=== PATIENT | female | born 1985 | race American Indian/Alaskan Native ===

== ENCOUNTER 2021-02-18 12:38 | Inpatient (IN) | payer OTHER ==
[~2021-02-18] VITALS: Ht 160 cm; Wt 70.3 kg
[2021-02-18] MEDS ORDERED: PRENATAL TABLE1 EAC1 PO (17:02)
== END 2021-02-25 10:10 | disposition home or self-care (01) | DRG 831 ==
LOC: OBS/DEL 12:38 → LDR 14:36 → OB/GYN 02-23 07:59
PROVIDERS: ADMIT Obstetrics & Gynecology; ATTEND Obstetrics & Gynecology
PROC: 4A1HXFZ Monitoring of Products of Conception, Cardiac Rhythm, External Approach (ICD-10-PCS; principal; 2021-02-18)
PROC: 3E0F7SF Introduction of Other Gas into Respiratory Tract, Via Natural or Artificial Opening (ICD-10-PCS; 2021-02-18)
PROC: B24BYZZ Ultrasonography of Heart with Aorta using Other Contrast (ICD-10-PCS; 2021-02-18)
PROC: BW24ZZZ Computerized Tomography (CT Scan) of Chest and Abdomen (ICD-10-PCS; 2021-02-18)
DX: O98.512 Other viral diseases complicating pregnancy, second trimester (principal); U07.1 COVID-19; O99.512 Diseases of the respiratory system complicating pregnancy, second trimester; J12.82 Pneumonia due to coronavirus disease 2019; J15.7 Pneumonia due to Mycoplasma pneumoniae; R82.71 Bacteriuria; R53.81 Other malaise; Z3A.25 25 weeks gestation of pregnancy

== ENCOUNTER 2021-05-19 12:15 | Inpatient (IN) | payer OTHER ==
[~2021-05-19] VITALS: Ht 160 cm; Wt 80.7 kg
[~2021-05-19 12:15] MED LIST: PRENATAL TABLE1 EAC1 PO
[2021-05-23] MEDS ORDERED: KETO10TA2 PO (09:07)
[2021-05-23] MEDS ORDERED: PERCOCET 5-3251 EACH PO (09:08)
== END 2021-05-23 14:10 | disposition home or self-care (01) | DRG 788 ==
LOC: LDR 05-20 05:24 → OB/GYN 05-20 20:53
PROVIDERS: ADMIT Obstetrics & Gynecology Maternal & Fetal Medicine; ATTEND Obstetrics & Gynecology Maternal & Fetal Medicine
PROC: 10907ZC Drainage of Amniotic Fluid, Therapeutic from Products of Conception, Via Natural or Artificial Opening (ICD-10-PCS; 2021-05-20)
PROC: 3E033VJ Introduction of Other Hormone into Peripheral Vein, Percutaneous Approach (ICD-10-PCS; 2021-05-20)
PROC: 4A1HXFZ Monitoring of Products of Conception, Cardiac Rhythm, External Approach (ICD-10-PCS; 2021-05-20)
PROC: 10D00Z1 Extraction of Products of Conception, Low, Open Approach (ICD-10-PCS; principal; 2021-05-20 20:15)
DX: O62.1 Secondary uterine inertia (principal); O64.0XX0 Obstructed labor due to incomplete rotation of fetal head, not applicable or unspecified; O65.9 Obstructed labor due to maternal pelvic abnormality, unspecified; O26.893 Other specified pregnancy related conditions, third trimester; Z67.11 Type A blood, Rh negative; O99.824 Streptococcus B carrier state complicating childbirth; Z3A.38 38 weeks gestation of pregnancy; Z37.0 Single live birth; Z86.16 Personal history of COVID-19